=== PATIENT | male | born 1955 | race Caucasian/White ===

== ENCOUNTER 2025-07-08 06:34 | Day surgery (SDC) | payer OTHER ==
[~2025-07-08] VITALS: Ht 170.2 cm; Wt 102.9 kg
[2025-07-08] VITALS (17 sets, daily range): BP systolic 107–178; BP diastolic 76–160
[~2025-07-08 06:34] MED LIST: Hair, Skin & N1 EACH; KRILL OIL500 MG
--- NOTE | 2025-07-08 07:03 | NUR ---
History, Chart, Medications and Allergies reviewed before start of procedure. Patient confirms NPO status and agrees with scheduled surgery. Patient states colon prep results clear. Lungs clear T/O to Auscultation. Pre-Op teaching done. Pt verbalizes understanding.
--- NOTE | 2025-07-08 08:21 | NUR ---
07/08/25 0821 Umberto Adam CONFIRMED AND REVIEWED H&P, MEDCICATIONS, ALLERGIES, MEDICAL HISTORY, RESPIRATORY HISTORY, VITAL SIGNS, 3-LEAD EKG, CONSENTS, AND PHYSICIAN ORDERS. PATIENT CONFIRMS NPO STATUS AND AGREES WITH SCHEDULED PROCEDURE. MONITOR INTACT WITH CONTINUOUS PULSE OXIMETRY, CAPNOGRAPHY, 3-LEAD EKG, INTERMITTENT BP. SUPPLEMENTAL O2 TO BE TITRATED THROUGHOUT PROCEDURE TO MAINTAIN O2 SATURATION ABOVE 90%. PATIENT DETERMINED TO BE ASA APPROPRIATE FOR PROPOFOL SEDATION PRIOR TO START OF PROCEDURE BY DR. LY
--- NOTE | 2025-07-08 08:38 | NUR ---
Discharge instructions reviewed with patient. Patient verbalizes understanding. Copy given to patient to take home. Patient States Post-Procedure ride home has been arranged. Discharged via wheelchair to private car for ride home.PATIENT HAS NO COMPLAINTS OF PAIN, VS BACK TO BACK BASELINE.
== END 2025-07-08 23:00 | disposition home or self-care (01) ==
LOC: ORSCMMR 06:34 → ORD 08:00 → ORSCMMR 08:00 → ORSCSDS 08:00 → ORSCMMR 23:00
PROVIDERS: Surgery
PROC: 0DBP8ZX Excision of Rectum, Via Natural or Artificial Opening Endoscopic, Diagnostic (ICD-10-PCS; principal; 2025-07-08 08:00)
DX: Z12.11 Encounter for screening for malignant neoplasm of colon (principal); K62.1 Rectal polyp; Z86.0101 Personal history of adenomatous and serrated colon polyps; I10 Essential (primary) hypertension; E78.5 Hyperlipidemia, unspecified; Z87.891 Personal history of nicotine dependence
CPT/HCPCS: 88305; J2704; J7120